=== PATIENT | male | born 1970 | race Two or more races ===

== ENCOUNTER 2017-06-30 18:43 | Emergency (ER) ==
[2017-06-30 18:52] VITALS: BP 165/101; TEMP 98.1; BMI 28.8
--- NOTE | 2017-06-30 19:09 | ED.PDOC ---
General ED Provider: Dr. PHILLIP DE LA ROSA-ER Chief Complaint: Knee Pain/Injury Stated Complaint: my knee popped and it hurts Time Seen by Physician: 19:06 Mode of Arrival: Walk-In Information Source: Patient Exam Limitations: No limitations Nursing and Triage Documentation Reviewed and Agree: Yes Reviewed sepsis parameters & appropriate labs ordered?: Yes System Inflammatory Response Syndrome: Not Applicable Sepsis Protocol: For patient's 13 years and over: Temp is 96.8 and below OR 101 and greater Pulse >90 BPM Resp >20/minute Acutely Altered Mental Status Are patient's symptoms suggestive of a new infection, such as: -Pneumonia -Skin, Soft Tissue -Endocarditis -UTI -Bone, Joint Infection -Implantable Device -Acute Abdominal Infection -Wound Infection -Meningitis -Blood Stream Catheter Infection -Unknown Musculoskeletal Complaint Exam - Knee Pain Complaint/Exam Mechanism of Injury: Reports: No known trauma Onset/Duration: 24hrs Symptoms Are: Still present Onset of Pain: Reports: Immediate Initial Severity: Mild Current Severity: Mild Location: Reports: Discrete (medial aspect of the right knee) Character: Reports: Dull, Aching Aggravating: Reports: Movement, Weight bearing Associated Signs and Symptoms: Denies: Swelling, Redness, Bruising, Fever, Weakness, Numbness, Tingling Able to Bear Weight: No Septic Arthritis Risk Factors: Reports: None Gout Risk Factors: Reports: None Knee Findings: Present: Tenderness, Limited range of motion Tomás Test Positive: No Fartun Test Positive: No Limited Range of Motion: Present: Active Differential Diagnoses: Closed Fracture, Internal Derangement, Sprain, Strain Review of Systems - Review Of Systems Constitutional: Reports: No symptoms Eyes: Reports: No symptoms Ears, Nose, Mouth, Throat: Reports: No symptoms Respiratory: Reports: No symptoms Cardiac: Reports: No symptoms GI: Reports: No symptoms : Reports: No symptoms Musculoskeletal: Reports: Joint pain Skin: Reports: No symptoms Neurological: Reports: No symptoms Endocrine: Reports: No symptoms Hematologic/Lymphatic: Reports: No symptoms All Other Systems: Reviewed and Negative Past Medical History - Past Medical History Previously Healthy: Yes Endocrine: Reports: Unknown Cardiovascular: Reports: Unknown Respiratory: Reports: Unknown Hematological: Reports: Unknown Gastrointestinal: Reports: Unknown Genitourinary: Reports: Unknown Neuro/Psych: Reports: Unknown Musculoskeletal: Reports: Unknown Cancer: Reports: Unknown - Surgical History General Surgical History: Reports: Unknown - Family History Family History: Reports: Unknown - Social History Smoking Status: Former smoker Hx Substance Use: No Alcohol Screening: None Physical Exam - Physical Exam Appearance: Well-appearing, No pain distress, Well-nourished Pain Distress: Mild Eyes: JULIÁN, EOMI, Conjunctiva clear ENT: Ears normal, Nose normal, Oropharynx normal Neck: Supple Respiratory: Airway patent, Breath sounds clear, Breath sounds equal, Respirations nonlabored Cardiovascular: RRR, Pulses normal, No rub, No murmur GI/: Soft Musculoskeletal: Limited ROM Skin: Warm, Dry, Normal color Neurological: Sensation intact, Motor intact, Reflexes intact, Cranial nerves intact, Alert, Oriented Psychiatric: Affect appropriate, Mood appropriate Interpretation - Radiology Interpretation Radiology Interpretation By: ED Physician Radiology Results: Negative Critical Care Note - Critical Care Note Total Time (mins): 0 Course - Course Orders, Labs, Meds: Orders Category Date Time Status KNEE, RIGHT 4 VIEWS Stat RADS 06/30/17 18:50 Taken Vital Signs: Temp Pulse Resp BP Pulse Ox 06/30/17 18:43 98.1 F 77 20 165/101 H 96 Departure - Departure Time of Disposition: 19:09 Disposition: HOME SELF-CARE Discharge Problem: Injury of knee Instructions: Knee Pain (ED) Condition: Good Pt referred to PMD for follow-up: Yes IPMP verified?: No Additional Instructions: stay in immobilizer and use crutches--norco 7.5mg q 4hrs prn pain #10--f/u with clinic and consider ortho walk in clinic or pcp and get mri or ortho consultation Allergies/Adverse Reactions: Allergies No Known Allergies Allergy (Unverified 06/30/17 18:49) Home Medications: Ambulatory Orders 1 [No Reported Medications] 06/30/17 Disposition Discussed With: Patient, Family
[2017-06-30] MEDS ORDERED: NORCO 5-325 PO STA (19:11)
--- NOTE | 2017-06-30 19:23 | DI ---
Exam: Right knee four views History: Knee pain Findings / impression: No bony or articular abnormalities of the right knee. Negative exam.
== END 2017-06-30 19:28 | disposition home or self-care (01) ==
LOC: ED 18:43
DX: S89.91XA Unspecified injury of right lower leg, initial encounter (principal)
CPT/HCPCS: 99282

== ENCOUNTER 2017-07-27 10:00 | Outpatient (RCR) ==
--- NOTE | 2017-07-14 14:46 | RS.OPPTEV2 ---
Date of Note: 07/14/17 Visit #: 1 Date of Evaluation: 07/14/17 Payer Source: Workman's Comp Date of Onset/Injury/Change in Status: 06/30/17 Treatment Diagnosis: Right knee pain, medial knee joint pain History of Condition/Mechanism of Injury:: Patient reports no history of problems with the right knee. States on 06/30/17, he twisted the knee while getting into a car. States the knee popped and he felt pain. States he continued to work and the knee popped at least two more times that day. States the patella did not dislocate. Prior Level of Function.....Patient was independent with: ADL's, Self Care, Work /Vocation, Caregiving, Ambulation/Mobility, Community Integration/Access Functional Limitations: Sleep, Self Care, ADL's, Sitting, Standing, Bending, Squatting, Ambulation, Community Access/Integration Current Subjective/complaints:: Patient describes pain at the medial aspect of the right knee and around the patella tendon. States the knee will still pop, but not with as much pain. States the knee feels unstable, like it will hyperextend. He has been ambulating with two crutches. Reports at times he takes a few steps without the crutches. States walking short distances, even with the crutches, causes increased knee pain. States the knee throbs at night and interferes with his ability to sleep. Reports slight numbness in the right foot at times. He has been icing the knee. 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 He has been off work since the onset of knee pain. His job requires standing, walking, lifting, standing on his toes, squatting. He does not currently have a date to return to work. Treatment Side (optional): Right Medical History Medical History Comments:: left knee injury years ago in the service Surgical History Comments:: Right shoulder surgery Smoking Status: Former smoker Hx Home Medications: 600 mg Ibuprofen Patient's Goals: His goal is to get relief of knee pain. Pain Assessment - Pain Description Pain Location: medial right knee joint Pain Description: Sharp, Throbbing Current Pain Intensity: 7/10 Worst Pain Intensity: 10/10 Functional Outcome Measure LE Functional Scale: 22 (22/80=72.5% impairment) - G Codes & Severity Modifier G Codes & Modifier: NA Source of G Code score: NA Observation - Observation Inspection: Right knee presents free of bruising or redness. Girth Measurement Lower: Superior pole of patella: Left 36.5 cm, Right 38.25 cm. Mid patella: Left 37 cm, Right 38.5 cm. Tibial plateau: Left 33 cm, Right 34 cm Gait - Gait Pattern Gait Comments: Patient ambulates with 2 crutches with decreased stance on the right LE and also decreased heel strike on the right. He is able to ambulate short distances in the department from chair to treatment table without crutches , but demonstrates more signficant limp on the right LE without an assistive device. - Left Knee ROM Left Knee Extension: +1 degrees AROM Left Knee Flexion: 139 (degrees AROM) - Right Knee ROM Right Knee Extension: -14 degrees from full extension Right Knee Flexion: 125 (degrees AROM) Knee ROM Limitations: Pain - Left Knee Strength Left Knee Extension: 5 Normal Left Knee Flexion: 5 Normal Comments: Left hip 5/5. - Right Knee Strength Right Knee Extension: 4+ Good + Right Knee Flexion: 4+ Good + Comments: Reports denies pain during MMT of right knee. Right hip 5/5. - Special Tests Comments: Patient demonstrates no instability with Special Tests of Anterior/ Posterior Drawer and Valgus and Varus Stress Tests. He demonstrates delayed reports of pain following Anterior Drawer and Varus stress tests. Reports pain with compression and mobility of the patella. Patella Apprehension test could not be performed completely due to patient not tolerating full knee extension. Reports discomfort with Fartun test, but this is also delayed. Palpation Comments:: Patient reports tenderness at the right knee, just medial to the patella. Denies tenderness during palpation to the patellar or quad tendon. Also denies tenderness to the medial joint line. Tenderness is over the medial patellar retinaculum. Sensation - Sensation Right Lower Extremity: Intact/Normal Left Lower Extremity: Intact/Normal Comments: Reports occasional numbness in the right foot. - Treatment Modality: Ultrasound Parameters/Method Applied: 1.5 w/cm2 continuous X 10 minutes to the medial aspect of the right knee. Patient Position: Supine Interventions - Exercise/Activities/Manual Therapy Exercises/Activities: Patient instructed in HEP of ankle pumps, heel slides/ standing HS curls, and quads sets. Advised to use ice on the knee later if he has increased discomfort following the evaluation or ultrasound treatment. Encouraged him to ice the knee frequently. Manual Therapy: NA HOME EXERCISE PROGRAM: ankle pumps, heel slides/standing HS curls, and quads sets - Charges Timed Code Treatment Minutes: 10 mins Total Treatment Time: 55 mins Procedures billed for this date of service:: DAYNA LOW, ultrasound EVALUATION COMPLEXITY LEVEL EVALUATION COMPLEXITY LEVEL: HISTORY: Low (no prior history of right knee problems), EXAM OF BODY SYSTEMS: Low, CLINICAL PRESENTATION: Low, CLINICAL DECISION MAKING: Low Assessment Assessment: Patient presents to therapy with a diagnosis of right medial knee pain. He demonstrates limited right knee extension due to pain. Right knee active flexion is WFL's, but less than the left. He exhibits difficulty with ambulation due to pain with weight bearing through the right knee. He demonstrates no hypermobility of the right knee joint in comparison to the left knee. He is tender over the medial patellar retinaculum. Special Tests are inconclusive due to delayed reponse with testing. He demonstrates potential to benefit from modalities and therapeutic exercises to regain painfree AROM and ambulation. Patient Education: Education of diagnosis, Body/Joint mechanics, Home Exercise Program, Activity Modification, Education of Plan of Care Rehab Potential: Good Short Term Goals Goal #1: Patient independent and compliant with HEP. Goal to be met by: 07/21/17 Goal #2: Right knee will demonstrate full knee extension. Goal to be met by: 07/24/17 Goal #3: Tenderness to right knee decreased to minimal. 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 Goal to be met by: 08/13/17 Goal #2: Pt to amb. community distances w/o assistive device, with min. gt deviation Goal to be met by: 08/13/17 Goal #3: Pt able to manage uneven terrain, including stairs w/o difficulty. Goal to be met by: 08/13/17 Goal #4: Pt able to return to work without limitation. Goal to be met by: 08/13/17 Plan - Treatment to be Provided Procedures: Therapeutic Exercises, Therapeutic Activity, Patient Education Modalities: Electrical Stimulation, Ultrasound/Phonophoresis, Cryotherapy - Treatment Plan Frequency: 3 X week Duration: 4 weeks ORDER # VISITS AND/OR THROUGH DATE: 08/13/17 - Treatment Code (1) Knee pain Code(s): M25.569 - PAIN IN UNSPECIFIED KNEE Qualifiers: Chronicity: acute Laterality: right Qualified Code(s): M25.561 - Pain in right knee (2) Knee stiffness Qualifiers: Laterality: right Qualified Code(s): M25.661 - Stiffness of right knee, not elsewhere classified
--- NOTE | 2017-07-16 15:31 | RS.OPPTDN ---
Subjective Date of Note: 07/16/17 Visit #: 2 Date of Evaluation: 07/14/17 Payer Source: Workman's Comp Treatment Diagnosis: Right knee pain, medial knee joint pain Current Subjective/complaints:: Patient reports pain with light touch to the right patella. Staes he has no pain at rest. Pain is primarily with weight- bearing. Pain Assessment - Pain Description Pain Location: Right knee Current Pain Intensity: 5/10 - Treatment Modality: Ultrasound Parameters/Method Applied: [id number] at 1.5w/cm2 to the right knee joint prior to EX. Patient in supine. Patient Position: Supine - Heat/Cryotherapy Treatment: Cryotherapy (Ended with 15mins to the right knee. Patient in supine with right LE elevated. ) Interventions - Exercise/Activities/Manual Therapy Exercises/Activities: Ankle pumps, quads sets, and ham sets, multiple reps. SAQ and SLR, 10reps each. Assisted knee flexion/extension. Isometric hip add with ball. Isometric ankle inversion with ball between feet. Heel slides. In sitting , heel slides into knee flexion. Advised patient to ice with right LE elevated with knee at or above heart. Total minutes of Exercise: 30mins Manual Therapy: NA HOME EXERCISE PROGRAM: ankle pumps, heel slides/standing HS curls, and quads sets - Objective Findings Observations,measurements,etc.: Progressed to full extension of the right knee. Demos 126 degrees right knee flexion with heel slide, and 132 degrees flexion at 90/90 position. Patient present to department with crutches and NWB on the right. When leaving he demos a walk-thru gait, WB on both LE's, with crutches. - Charges Timed Code Treatment Minutes: 40mins Total Treatment Time: 55mins Procedures billed for this date of service:: US, EX2, CP Assessment: Patient reporting continued pain with weight-bearing and initially with light touch to right knee. He also walks with crutches. Patient Education: Home Exercise Program Patient demonstrates compliance with HEP?: Yes Short Term Goals Goal #1: Patient independent and compliant with HEP. Goal to be met by: 07/21/17 Progress towards Goal:: Progressing Goal #2: Right knee will demonstrate full knee extension. Goal to be met by: 07/24/17 Progress towards Goal:: Met Goal #3: Tenderness to right knee decreased to minimal. 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 Goal to be met by: 08/13/17 Goal #2: Pt to amb. community distances w/o assistive device, with min. gt deviation Goal to be met by: 08/13/17 Goal #3: Pt able to manage uneven terrain, including stairs w/o difficulty. Goal to be met by: 08/13/17 Goal #4: Pt able to return to work without limitation. Goal to be met by: 08/13/17 Plan PLAN OF CARE EXPIRES ON:: 08/13/17 ORDER # VISITS AND/OR THROUGH DATE: 08/13/17 PLAN: Continue with modalities and progress exercise to reduce pain and increase functional activity level.
--- NOTE | 2017-07-19 14:15 | RS.OPPTDN ---
Subjective Date of Note: 07/19/17 Visit #: 3 Date of Evaluation: 07/14/17 Payer Source: Workman's Comp Treatment Diagnosis: Right knee pain, medial knee joint pain Pain Assessment - Pain Description Pain Location: Right medial joint and hamstring tightness Current Pain Intensity: 6/10 morning, 3-4/10 during the day. Other Comments regarding Pain:: Reports knee cap will occasionally lock and then pop. Patient reports knee cap popping on the bike. - Treatment Modality: Ultrasound Parameters/Method Applied: [id number] @ 1.5w/cm2 to the right knee joint following exercise today. Patient Position: Supine - Heat/Cryotherapy Treatment: Cryotherapy ([id number] to the right knee to end treatment. Patient in supine. ) Interventions - Exercise/Activities/Manual Therapy Exercises/Activities: Began for stationary bike 4mins slow pace forward and retro revolutions. Ankle pumps, quads sets, and ham sets, multiple reps. SAQ, SLR, and SLR/VMO 2s/10reps each. Assisted knee flexion/extension. Isometric hip add with ball. Isometric ankle inversion with ball between feet. Heel slides. Began red theraband for right ankle df, 2s/10reps. Red TB for hip add and hip abd, 2s/5reps each. In sitting, heel slides into knee flexion. Red TB for ham curl and ball between feet during LAQ, all 2s/10reps. Total minutes of Exercise: 28mins/32mins Manual Therapy: NA HOME EXERCISE PROGRAM: ankle pumps, heel slides/standing HS curls, and quads sets - Charges Timed Code Treatment Minutes: 38mins Total Treatment Time: 50mins Procedures billed for this date of service:: EX2, US, CP Assessment: Patient continues to report pain in the right knee with weight- bearing. He demos good ROM of the right knee with exercise. Patient Education: Education of diagnosis, Body/Joint mechanics, Home Exercise Program, Activity Modification Patient demonstrates compliance with HEP?: Yes Short Term Goals Goal #1: Patient independent and compliant with HEP. Goal to be met by: 07/21/17 Progress towards Goal:: Progressing Goal #2: Right knee will demonstrate full knee extension. Goal to be met by: 07/24/17 Progress towards Goal:: Met Goal #3: Tenderness to right knee decreased to minimal. Goal to be met by: 07/24/17 Fourth Hand Goals Goal #1: Score on LE functional scale improved to 60/80. Goal to be met by: 08/13/17 Goal #2: Pt to amb. community distances w/o assistive device, with min. gt deviation Goal to be met by: 08/13/17 Goal #3: Pt able to manage uneven terrain, including stairs w/o difficulty. Goal to be met by: 08/13/17 Goal #4: Pt able to return to work without limitation. Goal to be met by: 08/13/17 Plan PLAN OF CARE EXPIRES ON:: 08/13/17 ORDER # VISITS AND/OR THROUGH DATE: 08/13/17 PLAN: Progress with strengthening exercise and weight-bearing as tolerated.
--- NOTE | 2017-07-21 16:19 | RS.OPPTDN ---
Subjective Date of Note: 07/21/17 Visit #: 4 Date of Evaluation: 07/14/17 Payer Source: Workman's Comp Treatment Diagnosis: Right knee pain, medial knee joint pain Current Subjective/complaints:: Patient reports no change in right knee pain with weight-bearing activities. Pain Assessment - Pain Description Pain Location: Right knee Current Pain Intensity: 6/10 with weight-bearing, no pain at rest - Treatment Modality: Ultrasound Parameters/Method Applied: [id number] at 1.5w/cm2 to the right knee prior to EX. Patient in supine. Patient Position: Supine - Heat/Cryotherapy Treatment: Cryotherapy ([id number] to the right knee following EX. Patient in supine with LE elevated. ) Interventions - Exercise/Activities/Manual Therapy Exercises/Activities: Ankle pumps, quads sets, and ham sets, multiple reps. SAQ , SLR, and SLR/VMO 2s/10reps each. Assisted knee flexion/extension. Isometric hip add with ball. Isometric ankle inversion with ball between feet. Heel slides. Red theraband for right ankle df, 2s/10reps. Red TB for hip add and hip abd, 2s/5reps each. In sitting, heel slides into knee flexion. Red TB for ham curl, 3s/10reps. Ended with 4mins on bike alt forw and retro revolutions. Total minutes of Exercise: 30mins Manual Therapy: NA HOME EXERCISE PROGRAM: ankle pumps, heel slides/standing HS curls, and quads sets - Charges Timed Code Treatment Minutes: 40mins Total Treatment Time: 55mins Procedures billed for this date of service:: US, EX2, CP Assessment: Patient progressing with exercise but reports no change in pain. He continues to walk with crutches. Patient Education: Home Exercise Program Patient demonstrates compliance with HEP?: Yes Short Term Goals Goal #1: Patient independent and compliant with HEP. Goal to be met by: 07/21/17 Progress towards Goal:: Progressing Goal #2: Right knee will demonstrate full knee extension. Goal to be met by: 07/24/17 Progress towards Goal:: Met Goal #3: Tenderness to right knee decreased to minimal. 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 Goal to be met by: 08/13/17 Goal #2: Pt to amb. community distances w/o assistive device, with min. gt deviation Goal to be met by: 08/13/17 Goal #3: Pt able to manage uneven terrain, including stairs w/o difficulty. Goal to be met by: 08/13/17 Goal #4: Pt able to return to work without limitation. Goal to be met by: 08/13/17 Plan PLAN OF CARE EXPIRES ON:: 08/13/17 ORDER # VISITS AND/OR THROUGH DATE: 08/13/17 PLAN: Continue modalities and progress exercise to attempt to reduce pain with weight-bearing activities.
--- NOTE | 2017-07-23 16:30 | RS.OPPTDN ---
Subjective Date of Note: 07/23/17 Visit #: 5 Date of Evaluation: 07/14/17 Payer Source: Workman's Comp Treatment Diagnosis: Right knee pain, medial knee joint pain Current Subjective/complaints:: Patient reports increased pain and swelling in the right knee due to walking yesteday at grocery store. Pain Assessment - Pain Description Pain Location: Right knee - Treatment Modality: Ultrasound Parameters/Method Applied: [id number] at 1.5w/cm2 to the right knee joint with focus on medial joint line. Patient Position: Supine - Heat/Cryotherapy Treatment: Cryotherapy ([id number] to the right knee following treatment. Patient in supine. ) Interventions - Exercise/Activities/Manual Therapy Exercises/Activities: Ankle pumps, quads sets, and ham sets, multiple reps. SAQ , SLR, and SLR/VMO 2s/10reps each. Assisted knee flexion/extension. Isometric hip add with ball. Isometric ankle inversion with ball between feet. Heel slides. Red theraband for right ankle df, 2s/10reps. Red TB for hip add and hip abd, 2s/5reps each. In sitting, red TB for ham curl, 3s/10reps. Witheld bike today. Total minutes of Exercise: 28mins Manual Therapy: NA HOME EXERCISE PROGRAM: ankle pumps, heel slides/standing HS curls, and quads sets. Red theraband for ankle df and sitting ham curl. - Charges Timed Code Treatment Minutes: 38mins Total Treatment Time: 53mins Procedures billed for this date of service:: US, EX2, CP Assessment: Flair-up today due to increased walkking yesterday. Patient Education: Home Exercise Program, Home Safety, Activity Modification Patient demonstrates compliance with HEP?: Yes Short Term Goals Goal #1: Patient independent and compliant with HEP. Goal to be met by: 07/21/17 Progress towards Goal:: Progressing Goal #2: Right knee will demonstrate full knee extension. Goal to be met by: 07/24/17 Progress towards Goal:: Met Goal #3: Tenderness to right knee decreased to minimal. Goal to be met by: 07/24/17 Staffing Executive Goals Goal #1: Score on LE functional scale improved to 60/80. Goal to be met by: 08/13/17 Goal #2: Pt to amb. community distances w/o assistive device, with min. gt deviation Goal to be met by: 08/13/17 Progress towards goal: No Change Goal #3: Pt able to manage uneven terrain, including stairs w/o difficulty. Goal to be met by: 08/13/17 Goal #4: Pt able to return to work without limitation. Goal to be met by: 08/13/17 Plan PLAN OF CARE EXPIRES ON:: 08/13/17 ORDER # VISITS AND/OR THROUGH DATE: 08/13/17 PLAN: Continue modalities and progress exercise to reduce pain and increase weight-bearing with ambulation.
--- NOTE | 2017-07-27 11:15 | RS.OPPTDN ---
Subjective Date of Note: 07/27/17 Visit #: 6 Date of Evaluation: 07/14/17 Payer Source: Workman's Comp Treatment Diagnosis: Right knee pain, medial knee joint pain Current Subjective/complaints:: Patient reports little to no change in right knee pain and function. Continues to walk with crutches and continues to rate pain at 6/10 with weight-bearing on the right LE. States he is scheduled for right knee MRI tomorrow. Pain Assessment - Pain Description Pain Location: Right knee Current Pain Intensity: 6/10 with weight-bearing Other Comments regarding Pain:: Reports he can see some improvement in active extension of the right knee, but no change in pain with weight-bearing. - Treatment Modality: Ultrasound Parameters/Method Applied: [id number] at 1.5w/cm2 to the right knee with focus on medial joint line. Patient Position: Supine - Heat/Cryotherapy Treatment: Cryotherapy (Ended with 15mins to the right knee. Patient in supine. ) Interventions - Exercise/Activities/Manual Therapy Exercises/Activities: Ankle pumps, quads sets, and ham sets, multiple reps. SLR 2s/10reps each. Added 3# to SAQ 2s/10reps. Assisted knee flexion/extension. Isometric hip add with ball. Isometric ankle inversion with ball between feet. Red theraband for right ankle df, 2s/10reps. Red TB for hip add and hip abd, 10reps each. Stationary bike 5mins forward and retro. Total minutes of Exercise: 28mins Manual Therapy: NA HOME EXERCISE PROGRAM: ankle pumps, heel slides/standing HS curls, and quads sets. Red theraband for ankle df and sitting ham curl. - Objective Findings Observations,measurements,etc.: Patient demos full right knee ROM, but is unable to consistently perform a good quad set. - Charges Timed Code Treatment Minutes: 38mins Total Treatment Time: 53mins Procedures billed for this date of service:: US, EX2, CP Assessment: Patient reports no improvement in pain right knee. Spoke with Dr. Singleton by phone and he agrees to hold PT pending MRI results and his assessment of need to continue. Patient Education: Home Exercise Program, Home Safety, Activity Modification Comments: Reviewed HEP and advised patient to continue as this is a basic HEP. Also, he will need to progress right quad control. Patient demonstrates compliance with HEP?: Yes Short Term Goals Goal #1: Patient independent and compliant with HEP. Goal to be met by: 07/21/17 Progress towards Goal:: Met Comments:: Independent with basic HEP Goal #2: Right knee will demonstrate full knee extension. Goal to be met by: 07/24/17 Progress towards Goal:: Met Goal #3: Tenderness to right knee decreased to minimal. 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 Goal to be met by: 08/13/17 Progress towards goal: No Change Comments: FOM not assessed as patient reports no change. Goal #2: Pt to amb. community distances w/o assistive device, with min. gt deviation Goal to be met by: 08/13/17 Progress towards goal: No Change Goal #3: Pt able to manage uneven terrain, including stairs w/o difficulty. Goal to be met by: 08/13/17 Progress towards goal: No Change Goal #4: Pt able to return to work without limitation. Goal to be met by: 08/13/17 Progress towards goal: No Change Plan PLAN OF CARE EXPIRES ON:: 08/13/17 ORDER # VISITS AND/OR THROUGH DATE: 08/13/17 PLAN: Hold pending MRI results and assessment with physician.
== END 2017-07-31 ==
PROVIDERS: ATTEND Family Medicine
DX: M25.561 Pain in right knee (principal)

== ENCOUNTER 2017-07-28 14:45 | Outpatient (CLI) ==
--- NOTE | 2017-07-28 23:06 | MRI ---
EXAM: MRI right knee without contrast. HISTORY: Right knee pain. Instability. Perry pop a few times. No right knee surgery reported. Loc amita. Sore on inside.. TECHNIQUE: Using a local extremity coil on a high field strength magnet multiplanar multisequence ma gnet resonance imaging was performed of the right knee without intravenous or intra-articular gadolin ium contrast. COMPARISON: Four view plain film examination right knee 06/30/2017. FINDINGS: Within the medial compartment there is a large bucket-handle tear with torn portion of men iscus displaced laterally along the more medial intercondylar notch. The medial compartment cartilag e relatively congruent. Some trace joint centered subchondral bone marrow edema over the medial weig htbearing aspect of the medial compartment. Within the lateral compartment lateral meniscus is intact without discrete surfacing meniscal tear. The lateral compartment cartilage congruent without underlying subchondral edema. Within the patellofemoral compartment the patella seated with intact medial and lateral patellar reti naculum. Both the patellar and trochlear groove cartilage congruent without focal underlying subchon dral edema. Small right knee effusion. Thickened medial patella plica. No large osteochondral loose bodies. Pr ominent synovial/ganglion cyst formation along the posterior cruciate ligament recess. Some extracap sular extent. Question prior posterior capsular sprain/tear. Intact anterior and posterior cruciate ligament fibers showing normal orientation. The extensor mechanism is intact. The medial collatera l ligament as well as lateral collateral ligament complex and posterolateral corner intact. Small po sterior joint extension/popliteal cyst.. IMPRESSION: Large bucket-handle tear medial meniscus with torn portion meniscus displaced laterally along the more medial intercondylar notch. No discrete surfacing lateral meniscal tear identified. Trace joint centered subchondral bone marrow edema over the medial weightbearing aspect of the medial compartment. Small right knee effusion. Thickened medial patella plica. Prominent synovial/ganglion cyst formation along the posterior cruciate ligament recess. Some extrac apsular extent. Question prior posterior capsular sprain/tear. Intact cruciate and collateral ligaments. Small posterior joint extension/popliteal cyst.
== END 2017-07-28 14:46 | disposition home or self-care (01) ==
LOC: RAD 14:45
PROVIDERS: ATTEND Family Medicine
DX: M25.561 Pain in right knee (principal)